=== PATIENT | male | born 1945 | race Asian ===

== ENCOUNTER 2019-10-31 04:40 | Inpatient (IN) | payer OTHER ==
[~2019-10-31] VITALS: Ht 162.6 cm; Wt 58.5 kg
[2019-10-31] VITALS (7 sets, daily range): BP systolic 99–119; BP diastolic 40–55; Ht 162.6 cm; Wt 58.5 kg
[2019-10-31 05:56] LABS: ALKALINE PHOSPHATASE 134 U/L (46-116); ALT/SGPT 17 U/L (16-63); AMYLASE 90 U/L (25-115); AST/SGOT 33 U/L (15-37); BILIRUBIN TOTAL 0.34 mg/dL (0.20-1.00); CARBON DIOXIDE 22.1 mmol/L (21-32); CHLORIDE SERUM 93 mmol/L (98-107); CREATININE SERUM 1.2 mg/dL (0.7-1.3); GLUCOSE SERUM 170 mg/dL (74-106); LIPASE 250 IU/L (73-393); POTASSIUM SERUM 4.7 mmol/L (3.5-5.1); SODIUM SERUM 126 mmol/L (136-145)
[2019-10-31 05:57] LABS: ALBUMIN 2.1 g/dL (3.4-5.0); TOTAL PROTEIN, SERUM 5.3 g/dL (6.4-8.2)
[2019-10-31 06:06] LABS: BASOPHIL % 0.5 % (0-2); PLATELET COUNT 138 x10^3mcL (130-400); RED CELL DISTRIBUTION WIDTH 14.3 % (11.5-14.5)
[2019-10-31 08:23] LABS: rbc morphology (normal/abnorm) ABNORMAL (NORMAL)
[2019-10-31 14:03] LABS: rbc morphology (normal/abnorm) ABNORMAL (NORMAL)
[2019-11-01] VITALS (8 sets, daily range): BP systolic 109–149; BP diastolic 46–67
[2019-11-01 03:19] LABS: BASOPHIL % 0.4 % (0-2); PLATELET COUNT 138 x10^3mcL (130-400)
[2019-11-01 03:30] LABS: CALCIUM 7.7 mg/dL (8.5-10.1); CARBON DIOXIDE 24.4 mmol/L (21-32); CHLORIDE SERUM 99 mmol/L (98-107); CREATININE SERUM 0.8 mg/dL (0.7-1.3); GLUCOSE SERUM 174 mg/dL (74-106); POTASSIUM SERUM 5.2 mmol/L (3.5-5.1); SODIUM SERUM 131 mmol/L (136-145)
[2019-11-02 06:00] VITALS: BP 146/67
[2019-11-02 06:53] LABS: PLATELET COUNT 155 x10^3mcL (130-400)
[2019-11-02 07:02] LABS: CALCIUM 7.3 mg/dL (8.5-10.1); CARBON DIOXIDE 22.8 mmol/L (21-32); CHLORIDE SERUM 98 mmol/L (98-107); CREATININE SERUM 0.9 mg/dL (0.7-1.3); GLUCOSE SERUM 215 mg/dL (74-106); SODIUM SERUM 127 mmol/L (136-145)
[2019-11-02 08:14] LABS: RED CELL DISTRIBUTION WIDTH 14.9 % (11.5-14.5)
[2019-11-02 08:49] VITALS: BP 151/62
[2019-11-02 12:40] VITALS: BP 126/57
[2019-11-02 13:34] VITALS: BP 126/51
[2019-11-02 15:55] LABS: BAND NEUTROPHIL 0 % (0-10); BASOPHIL 0 % (0-2); MONOCYTE 13 % (0-7); SEGMENTED NEUTROPHILS 71 % (37-75)
[2019-11-02 15:57] LABS: rbc morphology (normal/abnorm) ABNORMAL (NORMAL)
[2019-11-02 15:58] LABS: PLATELET MORPHOLOGY PLATELETS NORMAL
[2019-11-02 17:30] VITALS: BP 112/54
[2019-11-02 21:06] VITALS: BP 131/59
[2019-11-03 05:50] VITALS: BP 109/53
[2019-11-03 06:09] LABS: BASOPHIL % 0.2 % (0-2); PLATELET COUNT 142 x10^3mcL (130-400)
[2019-11-03 06:44] LABS: RED CELL DISTRIBUTION WIDTH 15.6 % (11.5-14.5)
[2019-11-03 06:55] LABS: CALCIUM 7.5 mg/dL (8.5-10.1); CHLORIDE SERUM 98 mmol/L (98-107); GLUCOSE SERUM 138 mg/dL (74-106); POTASSIUM SERUM 4.3 mmol/L (3.5-5.1); SODIUM SERUM 129 mmol/L (136-145)
[2019-11-03 08:15] VITALS: BP 101/47
[2019-11-03 12:38] VITALS: BP 103/51
[2019-11-03 16:21] VITALS: BP 133/61
[2019-11-03 19:55] VITALS: BP 125/56
[2019-11-04 05:43] VITALS: BP 118/53
[2019-11-04 07:20] LABS: BASOPHIL % 0.4 % (0-2); PLATELET COUNT 131 x10^3mcL (130-400); RED BLOOD CELLS 2.41 M/mm3 (4.52-5.90)
[2019-11-04 07:29] LABS: RED CELL DISTRIBUTION WIDTH 15.9 % (11.5-14.5)
[2019-11-04 08:32] VITALS: BP 122/49
[2019-11-04 12:43] VITALS: BP 109/58
[2019-11-04 16:27] VITALS: BP 130/54
[2019-11-04 20:45] VITALS: BP 121/55
[2019-11-05 05:47] VITALS: BP 107/51
[2019-11-05 07:24] LABS: PLATELET COUNT 141 x10^3mcL (130-400)
[2019-11-05 07:44] LABS: RED CELL DISTRIBUTION WIDTH 16.6 % (11.5-14.5)
[2019-11-05 08:43] VITALS: BP 107/50
[2019-11-05 10:30] LABS: CALCIUM 7.6 mg/dL (8.5-10.1); CARBON DIOXIDE 21.1 mmol/L (21-32); CHLORIDE SERUM 102 mmol/L (98-107); CREATININE SERUM 0.8 mg/dL (0.7-1.3); GLUCOSE SERUM 101 mg/dL (74-106); POTASSIUM SERUM 3.8 mmol/L (3.5-5.1); SODIUM SERUM 133 mmol/L (136-145)
[2019-11-05 11:52] VITALS: BP 116/57
[2019-11-05 12:30] VITALS: BP 112/51
[2019-11-05] MEDS ORDERED: GOOD SENSE OMEP20 MG PO (12:57)
[2019-11-05] MEDS ORDERED: NATURE'S BLEND F1 MG PO (12:57)
[2019-11-05] MEDS ORDERED: SEN PO (12:57)
[2019-11-05] MEDS ORDERED: CARAFATE1 GM PO (12:58)
[2019-11-05] MEDS ORDERED: FERROUS SULFAT325 M2 PO (12:58)
[2019-11-05] MEDS ORDERED: MIRALAX17 GM/Dose PO (12:58)
[2019-11-05 13:27] VITALS: BP 112/51
[2019-11-05 14:12] LABS: MONOCYTE 10 % (0-7); SEGMENTED NEUTROPHILS 67 % (37-75); rbc morphology (normal/abnorm) ABNORMAL (NORMAL)
[2019-11-05 16:49] VITALS: BP 119/52
== END 2019-11-05 17:30 | disposition home or self-care (01) | DRG 377 ==
LOC: ED 04:40 → MU 08:36 → DU 08:36 → MU 11-03 08:12
PROVIDERS: Emergency Medicine; Internal Medicine Gastroenterology; ADMIT Internal Medicine
PROC: 0DB68ZX Excision of Stomach, Via Natural or Artificial Opening Endoscopic, Diagnostic (ICD-10-PCS; 2019-10-31)
PROC: 30233N1 Transfusion of Nonautologous Red Blood Cells into Peripheral Vein, Percutaneous Approach (ICD-10-PCS; principal; 2019-10-31 12:00)
PROC: 0DJ08ZZ Inspection of Upper Intestinal Tract, Via Natural or Artificial Opening Endoscopic (ICD-10-PCS; 2019-11-02 15:15)
PROC: 0DBG8ZZ Excision of Left Large Intestine, Via Natural or Artificial Opening Endoscopic (ICD-10-PCS; 2019-11-02 15:15)
DX: K92.1 Melena (principal); E43 Unspecified severe protein-calorie malnutrition; C24.9 Malignant neoplasm of biliary tract, unspecified; E87.1 Hypo-osmolality and hyponatremia; K31.1 Adult hypertrophic pyloric stenosis; K76.6 Portal hypertension; K28.9 Gastrojejunal ulcer, unspecified as acute or chronic, without hemorrhage or perforation; K31.89 Other diseases of stomach and duodenum; I85.10 Secondary esophageal varices without bleeding; I95.9 Hypotension, unspecified; D50.0 Iron deficiency anemia secondary to blood loss (chronic); D12.4 Benign neoplasm of descending colon; K64.8 Other hemorrhoids; I10 Essential (primary) hypertension; Z79.899 Other long term (current) drug therapy
CPT/HCPCS: 43235; 45378; 97116-GP; C9113; G0378; J1200; J1610; J1642; J1940; J2250; J2310; J2354; J2916; J3010; J3490; J7030; J7040; J7042; J7050; P9016; Q0092; Q0163

== ENCOUNTER 2019-11-06 07:40 | Observation (INO) | payer OTHER ==
[~2019-11-06] VITALS: Ht 165.1 cm; Wt 64.5 kg
[~2019-11-06 07:40] MED LIST: CARAFATE1 GM PO; FERROUS SULFAT325 M2 PO; GOOD SENSE OMEP20 MG PO; MIRALAX17 GM/Dose PO; NATURE'S BLEND F1 MG PO; SEN PO
[2019-11-06 07:44] VITALS: Ht 165.1 cm; Wt 64.5 kg
--- NOTE | 2019-11-06 07:44 | NUR ---
EKG IN PROGRESS
--- NOTE | 2019-11-06 07:44 | NUR ---
PT REFUSED 1GM TYLENOL FOR FEVER DURING TRIAGE, PT STS "I DON'T TAKE ANY MEDICATIONS" MD JOSUE MADE AWARE
--- NOTE | 2019-11-06 07:44 | NUR ---
PT REFUSED MEDICATION FOR FEVER DURING TRIAGE, PT STS "I DON'T TAKE ANY MEDICATIONS" MD JOSUE MADE AWARE
--- NOTE | 2019-11-06 07:44 | NUR ---
PT BIB AMBULANCE WITH C/O GENERALIZED WEAKNESS AND SOB SINCE THIS AM, PER MEDICS PT WAS D/C FROM HERE YESTERDAY AFTER BEING HERE FOR 3 DAYS FOR GI BLEED, PER MEDICS PT HAS HX GALL BLADDER AND LIVER CANCER, UPOON ARRIVAL, PT AAOX4, SPEAKING FULL CLEAR SENTENCES, PT SPO2 93 % VIA RA, PT PLACED ON 2L O2 VIA NC WITH SPO2 98%, WHEEZING NOTED TO BILATERAL LUNGS UPON AUSCULTATION, NO RETRACTIONS NOTED, SKIN PINK DRY WARM, PT FEBIRLE HOWEVER PT REFUSED MEDICATION, PT DENIES CHEST PAIN AT THIS TIME, PORT-A-CATH NOTED TO RIGHT UPPER CHEST, +PMSC TO ALL EXTREMITIES, PT GOWNED PLACED ON FULL CM NSR
--- NOTE | 2019-11-06 07:59 | NUR ---
SON AT BEDSIDE
--- NOTE | 2019-11-06 08:02 | NUR ---
SON STS "HE ONLY TAKES MEDICATION THAT HE WAS DISCHARGED WITH YESTERDAY NEVER BEFORE THAT"
--- NOTE | 2019-11-06 08:07 | NUR ---
MD JOSUE AT BEDSIDE PERFORMING MSE
--- NOTE | 2019-11-06 08:10 | NUR ---
PER SON PT RECEIVED LAST CHEMO TX X1 MONTH AGO
--- NOTE | 2019-11-06 08:28 | NUR ---
LAB AT BEDSIDE
--- NOTE | 2019-11-06 08:29 | NUR ---
PORTABLE CXR AT BEDSIDE
--- NOTE | 2019-11-06 08:35 | NUR ---
PT MADE AWARE TO PROVIDE URINE SPECIMEN [place]
[2019-11-06 08:37] LABS: PLATELET COUNT 201 x10^3mcL (130-400)
--- NOTE | 2019-11-06 08:46 | NUR ---
PT PROVIDED WATER PER PT REQUEST AND MD JOSUE VERBAL OAY
[2019-11-06 08:52] LABS: CHLORIDE SERUM 99 mmol/L (98-107); GLUCOSE SERUM 87 mg/dL (74-106); POTASSIUM SERUM 3.9 mmol/L (3.5-5.1); SODIUM SERUM 132 mmol/L (136-145)
[2019-11-06 08:57] LABS: ALBUMIN 2.4 g/dL (3.4-5.0); ALKALINE PHOSPHATASE 147 U/L (46-116); ALT/SGPT 26 U/L (16-63); AST/SGOT 56 U/L (15-37); BILIRUBIN TOTAL 0.96 mg/dL (0.20-1.00); CHOLESTEROL 108 mg/dL (<200); HDL CHOLESTEROL 22 mg/dL (40-60); TOTAL PROTEIN, SERUM 6.1 g/dL (6.4-8.2)
[2019-11-06 09:01] LABS: RED CELL DISTRIBUTION WIDTH 17.1 % (11.5-14.5)
[2019-11-06 09:22] LABS: microscopic required? YES; urine erythrocyte NEGATIVE (NEGATIVE)
--- NOTE | 2019-11-06 09:35 | NUR ---
PT TAKEN TO CT VIA RODNEY
--- NOTE | 2019-11-06 10:20 | NUR ---
CT, CXR, AND LAB RESULTS REVIEWED
--- NOTE | 2019-11-06 10:30 | NUR ---
PT ASLEEP BUT AROUSABLE IN POSITION OF COMFORT, RESPS E/U, VSS, NSR ON CM, SON AT BEDSIDE
--- NOTE | 2019-11-06 10:35 | NUR ---
MD JOSUE AT BEDSIDE DISCUSSING PLAN OF CARE
--- NOTE | 2019-11-06 10:39 | NUR ---
AX INFUSING PER EMAR AND MD ORDER, VSS, NSR ON CM, SON AT BEDSIDE
--- NOTE | 2019-11-06 11:20 | NUR ---
REPORT GIVEN TO ANNIE ABREU, TO RESUME CARE OF PT UPON ADMISSION
--- NOTE | 2019-11-06 11:40 | NUR ---
RECEIVED PT FROM ER, ADMISSION ASSESSEMENT AND HISTORY IS COLLECTED. DENIES ANY PAIN THIS TIME, STABLE. FAMILY AT BEDSIDE. V/S STABLE. ORIENTED PT TO ROOM. NO SOB THIS TIME. SAFTEY PRECAUTIONS ARE IN PLACE. WILL MONITOR.
[2019-11-06 13:17] VITALS: BP 115/53
--- NOTE | 2019-11-06 14:22 | NUR ---
CALLED AND INFORMED MEDICAL REVIEWER DANIELLE ABOUT PT HAVING MILD SOB AND WHEEZING, RT PROTOCOLE ORDERED AND INFORMED RT. WILL MONITOR.
--- NOTE | 2019-11-06 14:40 | NUR ---
PT RESTING IN BED COMFORTABLY, NO SOB NOTED THIS TIME. STABLE. RECEIVED BREATHING TX. WILL MONITOR.
[2019-11-06 15:33] VITALS: BP 115/53
[2019-11-06 16:29] VITALS: BP 118/53
--- NOTE | 2019-11-06 17:00 | NUR ---
BLADDER SCAN DONE ORDERED. SCANNED 15MIN AFTER PT VOIDED, POST VOIDED RESIDUAL IS 180. DENIES ANY PAIN. STABLE. FAMILY AT BEDSIDE.
--- NOTE | 2019-11-06 19:20 | NUR ---
PT RESTING IN BED COMFORTABLY, DENIES ANY PAIN THIS TIME. STABLE, FAMILY AT BEDSIDE. GAVE REPORT TO GUEST RELATIONS REPRESENTATIVE NURSE.
--- NOTE | 2019-11-06 19:56 | NUR ---
Awake and verbally responsive. No respiratory distress noted. On 02 2lpm via n/c. No wheezing noted at this time. Denies pain. SCD intact. Will cont. to monitor. Call light within reach.
[2019-11-06 21:20] VITALS: BP 98/49
--- NOTE | 2019-11-07 04:37 | NUR ---
Afebrile. No significant change in condition noted. Denies pain. No cough or congestion noted. Received HHN treatment. In no apparent distress.
[2019-11-07 05:26] VITALS: BP 118/57
[2019-11-07 06:30] LABS: BASOPHIL % 0.2 % (0-2); PLATELET COUNT 139 x10^3mcL (130-400)
[2019-11-07 06:49] LABS: CALCIUM 7.7 mg/dL (8.5-10.1); CARBON DIOXIDE 21.2 mmol/L (21-32); CHLORIDE SERUM 101 mmol/L (98-107); CREATININE SERUM 0.8 mg/dL (0.7-1.3); GLUCOSE SERUM 126 mg/dL (74-106); POTASSIUM SERUM 4.2 mmol/L (3.5-5.1); SODIUM SERUM 133 mmol/L (136-145)
--- NOTE | 2019-11-07 07:20 | NUR ---
RECEIVED PT FROM SIGNAL WIRER RN. Yonatan/GETACHEW. TELE#[id number]. DENIES CHEST PAIN/PRESSURE. RESPIRATIONS EQUAL AND UNLABORED ON 2L NC. DENIES SOB. PT DENIES ANY N/V AT THIS TIME. ABDOMEN DISTENDED, SOFT. PT DENIES ANY PAIN AT THIS TIME. IV TO MARIBEL PATENT AND INFUSING. NO REDNESS OR SWELLING NOTED. RIGHT UPPER CHEST PORTACATH, DRESSING CDI, SALINE LOCKED AT THIS TIME. IV TO RH SALINE LOCKED. NO REDNESS OR SWELLING NOTED. WILL CONTINUE TO MONITOR. CALL LIGHT IN REACH. BED IN LOWEST POSITION.
[2019-11-07 07:23] VITALS: BP 120/56
[2019-11-07 07:55] LABS: RED CELL DISTRIBUTION WIDTH 22.8 % (11.5-14.5)
--- NOTE | 2019-11-07 09:19 | NUR ---
PT SITTING UP IN BED. NO ACUTE RESP DISTRESS NOTED ON 2L NC. PT DENIES SOB AT THIS TIME. 02 SAT ON 2L NC IS 98%. PLACED PT ON RA, WILL CONTINUE TO MONITOR O2 SATURATION. GIVEN PO MEDS. TOLERATED WELL. DR. LOPEZ AND DANIELLE PILLOWCASE CLEANER AT BEDSIDE WITH SON DENNIS DISCUSSING PT CARE. IV TO LAC PATENT AND INFUSING. NO REDNESS OR SWELLING NOTED. WILL CONTINUE TO MONITOR. CALL LIGHT IN REACH. BED IN LOWEST POSITION.
[2019-11-07 10:10] LABS: rbc morphology (normal/abnorm) ABNORMAL (NORMAL)
--- NOTE | 2019-11-07 10:29 | NUR ---
PT SITTING UP IN BED. NO ACUTE RESP DISTRESS NOTED ON RA. PT C/O COUGH AND DIFFICULTY BREATHING. 02 SAT CHECKED WAS 97% ON RA. CALLED RESPIRATORY THERAPIST FOR BREATHING TREATMENT. WILL CONTINUE TO MONITOR. CALL LIGHT IN REACH. BED IN LOWEST POSITION.
[2019-11-07] MEDS ORDERED: PROVENTIL0.09 MG/A1 INH (10:31)
[2019-11-07] MEDS ORDERED: LEVAQUIN750 MG PO (10:31)
--- NOTE | 2019-11-07 10:50 | NUR ---
RECEIVED PT FROM LOIS DAVIES. PT AA/OX4 LAYING IN BED ON 2LNC. NO SOB AT THIS TIME. NO CHEST PAIN. NO ORTA. NO DIZZINESS. NO N/V. CALM/COOPERATIVE. IVS WNL TO MARIBEL/RH. PATENT AND FLUSH WELL. IVF FLOWING. FALL PREC IN PLACE. INSTRUCTED TO USE CALL LIGHT TO CALL FOR ASSISTANCE PRN. PT VERBALIZED UNDERSTANDING. AT BEDSIDE. BED IN LOW POSITION. CALL LIGHT WITHIN REACH. WILL CONT. TO MONITOR.
[2019-11-07 10:52] VITALS: BP 120/56
--- NOTE | 2019-11-07 11:07 | NUR ---
CARE ENDORSED TO ARCHANA ABREU. ALL QUESTIONS AND CONCERNS ADDRESSED.
[2019-11-07 11:40] VITALS: BP 121/64
--- NOTE | 2019-11-07 15:10 | NUR ---
PT BEING DISCHARGED TO HOME. AWAKE, ALERT, ORIENTED X4. DENIES PAIN. NO SOB ON ROOM AIR. O2 SAT RANGES BETWEEN 94%-100% AT THIS TIME, SPOT CHECKED. RR EVEN/UNLABORED. CHEST EXPANSION SYMMETRICAL. NO N/V. NO CHILLS. NO FEVER. CALM/COOPERATIVE. DISCHARGE EDUCATION PROVIDED TO PT AND SON. INSTRUCTED TO FOLLOW UP WITH PCP/ONCOLOGIST AT [facility]. SON/PT VERBALIZED UNDERSTANDING. PER SON, PT HAS APPT Tuesday11/09/19. PRESCRIPTION SENT TO PHARMACY, SON VERIFIED LOCATION, VERBALIZED UNDERSTANDING. IVS REMOVED FROM LFA/RH. SITES WNL. NO REDNESS, NO SWELLING, NO INFILTRATION. CATHETERS IN TACT. PRESSURE APPLIED TO BOTH SITES. BELONGINGS WITH PATIENT. TELE REMOVED. NSR ON TELE. TAKEN BY WHEELCHAIR TO DC LOBBY BY IZAIAH RICKS. ACCOMPANIED BY SON/.
== END 2019-11-07 15:31 | disposition home or self-care (01) ==
LOC: ED 07:40 → DU 10:42
PROVIDERS: Emergency Medicine; ADMIT Family Medicine
DX: R06.02 Shortness of breath (principal); I10 Essential (primary) hypertension; R53.1 Weakness; E87.1 Hypo-osmolality and hyponatremia; E46 Unspecified protein-calorie malnutrition; D64.9 Anemia, unspecified
CPT/HCPCS: 36600; 82962; 94150; 97116-GP; G0378; J0456; J1956; J7030; Q0092; Q9967